=== PATIENT | female | born 1995 | race Caucasian/White ===

== ENCOUNTER 2017-12-16 09:55 | Emergency (ER) | payer OTHER ==
[2017-12-16] MEDS: KETOROLAC 30 MG INJ IV (10:59)
[2017-12-16] MEDS: SOD CHLORIDE 0.9% 1,000 ML IV (10:59)
[2017-12-16] MEDS: METOCLOPRAMIDE 10 MG INJ IV (10:59)
[2017-12-16] MEDS: DIPHENHYDRAMINE 50 MG INJ IV (11:00)
== END 2017-12-16 13:08 | disposition home or self-care (01) ==
LOC: FTE 09:55
DX: G43.909 Migraine, unspecified, not intractable, without status migrainosus (principal); R10.2 Pelvic and perineal pain
CPT/HCPCS: 36415; 84703; 96374; 96375; 99284-25